=== PATIENT | female | born 1950 | race African-American/Black ===

== ENCOUNTER 2018-07-14 12:54 | Observation (INO) | payer OTHER ==
--- NOTE | 2018-07-14 13:25 | EDM.PDOC ---
ED HPI GENERAL MEDICAL PROBLEM - General Chief Complaint: Chest Pain Stated Complaint: CHEST PAINS Time Seen by Provider: 07/14/18 12:56 - History of Present Illness INITIAL COMMENTS - FREE TEXT/NARRATIVE: HISTORY AND PHYSICAL: History of present illness: Patient is a 68-year-old black female with history of hypercholesterolemia diabetes who presents with concern of left-sided chest pain there is some radiation her left arm she communicates through her son who has been translating there's been no reported associated palpitations nausea vomiting diaphoresis. Patient reports allergies to aspirin Review of systems: As per history of present illness and below otherwise all systems reviewed and negative. Past medical history: As per history of present illness and as reviewed below otherwise noncontributory. Surgical history: As per history of present illness and as reviewed below otherwise noncontributory. Social history: No reported history of drug or alcohol abuse. Family history: As per history of present illness and as reviewed below otherwise noncontributory. Physical exam: HEENT: Atraumatic, normocephalic, pupils reactive, negative for conjunctival pallor or scleral icterus, mucous membranes moist, throat clear, neck supple, nontender, trachea midline. Lungs: Clear to auscultation, breath sounds equal bilaterally, chest nontender. Heart: S1S2, regular, negative for clicks, rubs, or JVD. Abdomen: Soft, nondistended, nontender. Negative for masses or hepatosplenomegaly. Negative for costovertebral tenderness. Pelvis: Stable nontender. Genitourinary: Deferred. Rectal: Deferred. Extremities: Atraumatic, negative for cords or calf pain. Neurovascular unremarkable. Neuro: Awake, alert, oriented. Follows commands moves ostrum is limited grossly nonfocal exam. Diagnostics: CBC CMP PT/INR chest x-ray EKG Therapeutics: IV O2 monitor Impression: #1 chest pain #2 history of [id number] diabetes #3 history of hypercholesteremia Definitive disposition and diagnosis as appropriate pending reevaluation and review of above. Left Chest Pain Score (Numeric/FACES): 7 - Related Data Allergies Allergy/AdvReac Type Severity Reaction Status Date / Time NSAIDS (Non-Steroidal Allergy Nausea and Verified 07/14/18 13:04 Anti-Inflamma Vomiting Home Meds: Home Meds Candesartan Cilexetil [Atacand] 16 mg PO DAILY 07/14/18 [History] Cholecalciferol (Vitamin D3) [Vitamin D3] 1 cap PO ASDIRECTED 07/14/18 [History] Fish Oil/[place]-3 Fatty Acids [Fish Oil] 1 cap PO ASDIRECTED 07/14/18 [History] Multivitamin [Daily Multiple Vitamin] 1 tab PO DAILY 07/14/18 [History] Rosuvastatin [Crestor] 5 mg PO DAILY 07/14/18 [History] Vitamin B Complex 1 cap PO ASDIRECTED 07/14/18 [History] amLODIPine Besylate [Amlodipine Besylate] 10 mg PO DAILY 07/14/18 [History] metFORMIN HCl [Metformin HCl] 850 mg PO ASDIRECTED 07/14/18 [History] Past Medical History Cardiovascular History: Reports: Hypertension [employer] History: Reports: Endocrine/Metabolic History: Reports: Diabetes, Type II - Infectious Disease History Infectious Disease History: Reports: Chicken Pox - Past Surgical History Cardiovascular Surgical History: Reports: None Other Female Surgeries/Procedures: Ovarian cyst removal Endocrine Surgical History: Reports: None Social & Family History - Family History Family Medical History: Noncontributory - Tobacco Use Smoking Status *Q: Never Smoker Second Hand Smoke Exposure: No - Caffeine Use Caffeine Use: Reports: None - Recreational Drug Use Recreational Drug Use: No ED ROS GENERAL - Review of Systems Review Of Systems: ROS reveals no pertinent complaints other than HPI. ED EXAM, GENERAL - Physical Exam Exam: See Below (The dictation) Course - Vital Signs Last Recorded V/S: Last Vital Signs Temp 36.9 C 07/14/18 13:04 Pulse 61 07/14/18 13:04 Resp 17 07/14/18 13:04 BP 153/88 H 07/14/18 13:04 Pulse Ox 98 07/14/18 13:04 - Orders/Labs/Meds Orders: Active Orders 24 hr Category Date Time Status Cardiac Monitoring [RC] . DIRECTED Care 07/14/18 13:14 Active EKG Documentation Completion [RC] STAT Care 07/14/18 13:15 Active B-TYPE NATRIURETIC PEPTIDE,BNP [CHEM] Stat Lab 07/14/18 13:16 Ordered Labs: Laboratory Tests 07/14/18 07/14/18 07/14/18 Range/Units 13:00 13:00 13:00 WBC 5.25 (4.0-11.0) K/uL RBC 4.65 (4.30-5.90) M/uL Hgb 14.7 (12.0-16.0) g/dL Hct 44.2 (36.0-46.0) % MCV 95.1 (80.0-98.0) fL MCH 31.6 (27.0-32.0) pg MCHC 33.3 (31.0-37.0) g/dL RDW Std Deviation 49.2 (28.0-62.0) fl RDW Coeff of Massimo 14 (11.0-15.0) % Plt Count 189 (150-400) K/uL MPV 10.90 (7.40-12.00) fL Neut % (Auto) 33.9 L (48.0-80.0) % Lymph % (Auto) 56.8 H (16.0-40.0) % Divide % (Auto) 7.4 (0.0-15.0) % Eos % (Auto) 1.7 (0.0-7.0) % Baso % (Auto) 0.2 (0.0-1.5) % Neut # (Auto) 1.8 (1.4-5.7) K/uL Lymph # (Auto) 3.0 H (0.6-2.4) K/uL Divide # (Auto) 0.4 (0.0-0.8) K/uL Eos # (Auto) 0.1 (0.0-0.7) K/uL Baso # (Auto) 0.0 (0.0-0.1) K/uL Nucleated RBC % 0.0 /100WBC Nucleated RBCs # 0 K/uL INR 1.03 Sodium 140 (136-145) mmol/L Potassium 4.1 (3.5-5.1) mmol/L Chloride 104 (98-107) mmol/L Carbon Dioxide 25.1 (21.0-32.0) mmol/L BUN 19 H (7.0-18.0) mg/dL Creatinine 0.8 (0.6-1.0) mg/dL Est Cr Clr Drug Dosing 64.54 mL/min Estimated GFR (MDRD) > 60.0 ml/min Glucose 98 (74-106) mg/dL Calcium 9.6 (8.5-10.1) mg/dL Total Bilirubin 0.6 (0.2-1.0) mg/dL AST 32 (15-37) IU/L ALT 46 (14-63) IU/L Alkaline Phosphatase 56 (46-116) U/L Creatine Kinase 160 (26-308) U/L Troponin I < 0.050 (0.000-0.056) ng/mL Total Protein 8.8 H (6.4-8.2) g/dL Albumin 4.0 (3.4-5.0) g/dL Globulin 4.8 H (2.6-4.0) g/dL Albumin/Globulin Ratio 0.8 L (0.9-1.6) Amylase 123 H (25-115) U/L Lipase 196 (73-393) U/L Departure - Departure Time of Disposition: 14:13 Disposition: Refer to Observation Condition: Good Clinical Impression: Chest pain - Discharge Information Referrals: Heri Charles MD [Primary Care Provider] - Forms: ED Department Discharge - My Orders Last 24 Hours: My Active Orders 07/14/18 13:14 Cardiac Monitoring [RC] . DIRECTED 07/14/18 13:15 EKG Documentation Completion [RC] STAT 07/14/18 13:16 B-TYPE NATRIURETIC PEPTIDE,BNP [CHEM] Stat - Assessment/Plan Last 24 Hours: My Active Orders 07/14/18 13:14 Cardiac Monitoring [RC] . DIRECTED 07/14/18 13:15 EKG Documentation Completion [RC] STAT 07/14/18 13:16 B-TYPE NATRIURETIC PEPTIDE,BNP [CHEM] Stat
[2018-07-14 13:43] LABS: CHLORIDE,CL 104 mmol/L (98-107); SODIUM,NA 140 mmol/L (136-145)
--- NOTE | 2018-07-14 13:43 | CR ---
EXAMINATION: Portable chest radiograph. HISTORY: Chest pain. FINDINGS: The trachea is midline. The cardiomediastinal silhouette is within normal limits. No pulmonary infiltrates, effusions or pneumothorax. Osseous structures appear unremarkable. IMPRESSION: No acute cardiopulmonary process.
[2018-07-14] MEDS ORDERED: Fish Oil/Omega-3 Fatty Acids 1 Gm Cap PO SCH (15:15)
[2018-07-14] MEDS ORDERED: Cholecalciferol (Vitamin D3) 1,000 Unit Tab PO SCH (15:15)
[2018-07-14] MEDS ORDERED: Pantoprazole 40 MG in Sodium Chloride 0.9% 100 ML IVPUSH ONE (15:23)
[2018-07-14] MEDS ORDERED: Enoxaparin 40 MG/0.4 ML Syringe SUBCUT SCH (15:30)
--- NOTE | 2018-07-14 15:38 | PCM.HP ---
<Yuri Melo - Last Filed: 07/14/18 15:31> H&P History of Present Illness - General Date of Service: 07/14/18 Admit Problem/Dx: Admission Diagnosis/Problem Admission Diagnosis/Problem Chest pain Source of Information: Patient, Family History Limitations: Reports: No Limitations - History of Present Illness Initial Comments - Free Text/Narative: 68F AA hx of T2DM, HTN presented to the ER with her son w/ chief complaint of chest discomfort; left sided radiating down left arm for the past 2 days. She thinks its heartburn. No hx of cardiac event history. Left Chest Pain Score (Numeric/FACES): 7 - Related Data Allergies/Adverse Reactions: Allergies Allergy/AdvReac Type Severity Reaction Status Date / Time NSAIDS (Non-Steroidal Allergy Nausea and Verified 07/14/18 13:04 Anti-Inflamma Vomiting Home Medications: Home Meds Candesartan Cilexetil [Atacand] 16 mg PO DAILY 07/14/18 [History] Cholecalciferol (Vitamin D3) [Vitamin D3] 1 cap PO ASDIRECTED 07/14/18 [History] Fish Oil/Adel-3 Fatty Acids [Fish Oil] 1 cap PO ASDIRECTED 07/14/18 [History] Melatonin [Melatin] 3 mg PO BEDTIME 07/14/18 [History] Multivitamin [Daily Multiple Vitamin] 1 tab PO DAILY 07/14/18 [History] Rosuvastatin [Crestor] 5 mg PO DAILY 07/14/18 [History] Vitamin B Complex 1 cap PO ASDIRECTED 07/14/18 [History] amLODIPine Besylate [Amlodipine Besylate] 10 mg PO DAILY 07/14/18 [History] metFORMIN HCl [Metformin HCl] 850 mg PO ASDIRECTED 07/14/18 [History] Past Medical History Cardiovascular History: Reports: High Cholesterol, Hypertension [employer]ER History: Reports: Endocrine/Metabolic History: Reports: Diabetes, Type II - Infectious Disease History Infectious Disease History: Reports: Chicken Pox - Past Surgical History Cardiovascular Surgical History: Reports: None Other Female Surgeries/Procedures: Ovarian cyst removal Endocrine Surgical History: Reports: None Social & Family History - Family History Family Medical History: Noncontributory - Tobacco Use Smoking Status *Q: Never Smoker Second Hand Smoke Exposure: No - Caffeine Use Caffeine Use: Reports: None - Recreational Drug Use Recreational Drug Use: No H&P Review of Systems - Review of Systems: Review Of Systems: See Below Exam - Exam Exam: See Below - Vital Signs Vital Signs: Last Vital Signs Temp 36.9 C 07/14/18 13:04 Pulse 52 L 07/14/18 14:50 Resp 18 07/14/18 14:50 BP 149/82 H 07/14/18 14:50 Pulse Ox 98 07/14/18 14:50 Weight: 79.832 kg - Exam General: Alert, Oriented, 4 HEENT: PERRLA, Hearing Intact, Mucosa Moist & [place], Nares Patent, Normal Nasal Septum, Posterior Pharynx Clear, Conjunctiva Clear, EOMI, EACs Clear, TMs Clear Neck: Supple, Trachea Midline, 2 Lungs: Clear to Auscultation, Normal Respiratory Effort Cardiovascular: Regular Rate, Regular Rhythm GI/Abdominal Exam: Normal Bowel Sounds, Soft, Non-Tender, No Organomegaly, No Distention, No Abnormal Bruit, No Mass, Pelvis Stable Peripheral Pulses: 2+: Dorsalis Pedis (L), Dorsalis Pedis (R) Skin: Warm Neurological: Cranial Nerves Intact, Reflexes Equal Bilateral Neuro Extensive - Motor, Sensory, Reflexes: CN II-XII Intact, Normal Gait, Normal Reflexes DTR: 2+: Achilles (L), Achilles (R) Psychiatric: Alert, Normal Affect, Normal Mood - Patient Data Lab Results Last 24 hrs: Laboratory Results - last 24 hr 07/14/18 07/14/18 07/14/18 Range/Units 13:00 13:00 13:00 WBC 5.25 (4.0-11.0) K/uL RBC 4.65 (4.30-5.90) M/uL Hgb 14.7 (12.0-16.0) g/dL Hct 44.2 (36.0-46.0) % MCV 95.1 (80.0-98.0) fL MCH 31.6 (27.0-32.0) pg MCHC 33.3 (31.0-37.0) g/dL RDW Std Deviation 49.2 (28.0-62.0) fl RDW Coeff of Massimo 14 (11.0-15.0) % Plt Count 189 (150-400) K/uL MPV 10.90 (7.40-12.00) fL Neut % (Auto) 33.9 L (48.0-80.0) % Lymph % (Auto) 56.8 H (16.0-40.0) % Sampson % (Auto) 7.4 (0.0-15.0) % Eos % (Auto) 1.7 (0.0-7.0) % Baso % (Auto) 0.2 (0.0-1.5) % Neut # (Auto) 1.8 (1.4-5.7) K/uL Lymph # (Auto) 3.0 H (0.6-2.4) K/uL Sampson # (Auto) 0.4 (0.0-0.8) K/uL Eos # (Auto) 0.1 (0.0-0.7) K/uL Baso # (Auto) 0.0 (0.0-0.1) K/uL Nucleated RBC % 0.0 /100WBC Nucleated RBCs # 0 K/uL INR 1.03 Sodium 140 (136-145) mmol/L Potassium 4.1 (3.5-5.1) mmol/L Chloride 104 (98-107) mmol/L Carbon Dioxide 25.1 (21.0-32.0) mmol/L BUN 19 H (7.0-18.0) mg/dL Creatinine 0.8 (0.6-1.0) mg/dL Est Cr Clr Drug Dosing 64.54 mL/min Estimated GFR (MDRD) > 60.0 ml/min Glucose 98 (74-106) mg/dL Calcium 9.6 (8.5-10.1) mg/dL Total Bilirubin 0.6 (0.2-1.0) mg/dL AST 32 (15-37) IU/L ALT 46 (14-63) IU/L Alkaline Phosphatase 56 (46-116) U/L Creatine Kinase 160 (26-308) U/L Troponin I < 0.050 (0.000-0.056) ng/mL B-Natriuretic Peptide (<100) PG/ML Total Protein 8.8 H (6.4-8.2) g/dL Albumin 4.0 (3.4-5.0) g/dL Globulin 4.8 H (2.6-4.0) g/dL Albumin/Globulin Ratio 0.8 L (0.9-1.6) Amylase 123 H (25-115) U/L Lipase 196 (73-393) U/L 07/14/18 Range/Units 13:00 WBC (4.0-11.0) K/uL RBC (4.30-5.90) M/uL Hgb (12.0-16.0) g/dL Hct (36.0-46.0) % MCV (80.0-98.0) fL MCH (27.0-32.0) pg MCHC (31.0-37.0) g/dL RDW Std Deviation (28.0-62.0) fl RDW Coeff of Massimo (11.0-15.0) % Plt Count (150-400) K/uL MPV (7.40-12.00) fL Neut % (Auto) (48.0-80.0) % Lymph % (Auto) (16.0-40.0) % Sampson % (Auto) (0.0-15.0) % Eos % (Auto) (0.0-7.0) % Baso % (Auto) (0.0-1.5) % Neut # (Auto) (1.4-5.7) K/uL Lymph # (Auto) (0.6-2.4) K/uL Sampson # (Auto) (0.0-0.8) K/uL Eos # (Auto) (0.0-0.7) K/uL Baso # (Auto) (0.0-0.1) K/uL Nucleated RBC % /100WBC Nucleated RBCs # K/uL INR Sodium (136-145) mmol/L Potassium (3.5-5.1) mmol/L Chloride (98-107) mmol/L Carbon Dioxide (21.0-32.0) mmol/L BUN (7.0-18.0) mg/dL Creatinine (0.6-1.0) mg/dL Est Cr Clr Drug Dosing mL/min Estimated GFR (MDRD) ml/min Glucose (74-106) mg/dL Calcium (8.5-10.1) mg/dL Total Bilirubin (0.2-1.0) mg/dL AST (15-37) IU/L ALT (14-63) IU/L Alkaline Phosphatase (46-116) U/L Creatine Kinase (26-308) U/L Troponin I (0.000-0.056) ng/mL B-Natriuretic Peptide 27 (<100) PG/ML Total Protein (6.4-8.2) g/dL Albumin (3.4-5.0) g/dL Globulin (2.6-4.0) g/dL Albumin/Globulin Ratio (0.9-1.6) Amylase (25-115) U/L Lipase (73-393) U/L Result Diagrams: 07/14/18 13:00 07/14/18 13:00 Problem List Initiated/Reviewed/Updated: Yes Orders Last 24hrs: Active Orders 24 hr Category Date Time Status Patient Status [ADT] Stat ADT 07/14/18 14:14 Active Antiembolic Devices [RC] PER UNIT ROUTINE Care 07/14/18 15:23 Ordered Cardiac Monitoring [RC] . DIRECTED Care 07/14/18 13:14 Active Cardiac Monitoring [RC] CONTINUOUS Care 07/14/18 15:22 Ordered EKG Documentation Completion [RC] STAT Care 07/14/18 13:15 Active Oxygen Therapy [RC] PRN Care 07/14/18 15:22 Ordered Up ad Danna [RC] ASDIRECTED Care 07/14/18 15:22 Ordered VTE/DVT Education [RC] PER UNIT ROUTINE Care 07/14/18 15:22 Ordered Vital Signs [RC] Q4H Care 07/14/18 15:22 Ordered Heart Healthy Diet [DIET] Diet 07/14/18 Dinner Ordered TROPONIN I [CHEM] Q6H Lab 07/14/18 19:00 Ordered TROPONIN I [CHEM] Q6H Lab 07/15/18 01:00 Ordered Candesartan Cilexetil [Atacand] Med 07/15/18 09:00 Ordered 16 mg PO DAILY Cholecalciferol (Vitamin D3) [Vitamin D3] Med 07/14/18 15:15 Ordered 1 cap PO ASDIRECTED Enoxaparin [Lovenox] Med 07/14/18 15:30 Ordered 40 mg SUBCUT Q24H Fish Oil/Adel-3 Fatty Acids [Fish Oil] Med 07/14/18 15:15 Active 1 gm PO ASDIRECTED Pantoprazole [ProTONIX IV] 40 mg Med 07/14/18 15:23 Ordered Sodium Chloride 0.9% [Normal Saline] 100 ml IVPUSH NOW Rosuvastatin [Crestor] Med 07/15/18 09:00 Active 5 mg PO DAILY amLODIPine [Norvasc] Med 07/14/18 15:15 Active 10 mg PO DAILY metFORMIN [Glucophage] Med 07/14/18 15:15 Active 850 mg PO ASDIRECTED Sequential Compression Device [OM.PC] Per Unit Routine Oth 07/14/18 15:22 Ordered Medication Orders Amlodipine Besylate (Norvasc) 10 mg PO DAILY IVY Enoxaparin Sodium (Lovenox) 40 mg SUBCUT Q24H IVY Fish Oil (Fish Oil) 1 gm PO ASDIRECTED IVY Pantoprazole Sodium 40 mg/ (Sodium Chloride) 100 mls @ 10 mls/hr IVPUSH NOW ONE Stop: 07/15/18 01:22 Metformin HCl (Glucophage) 850 mg PO ASDIRECTED IVY Non-Formulary Medication (Candesartan Cilexetil [Atacand]) 16 mg PO DAILY IVY Non-Formulary Medication (Cholecalciferol (Vitamin D3) [Vitamin D3]) 1 cap PO ASDIRECTED IVY Rosuvastatin Calcium (Crestor) 5 mg PO DAILY IVY Assessment/Plan Comment:: Assessment: #1. ACS rule out #2. History of HTN, T2DM #3. GERD Plan: #1. Refer for observation. vitals per floor. cardiac tele/cardiac diet #2. troponin q6h x2 #3. protonix 40mg IV x1 #4. Restart home meds #5. Anticipate dc 1-2 days w/ scheduling outpatient stress test. <Jesus Molina - Last Filed: 07/14/18 18:39> H&P History of Present Illness - General Admit Problem/Dx: Admission Diagnosis/Problem Admission Diagnosis/Problem Chest pain I have seen and examined to patient independently of resident medical officer, Yuri Melo MD. I have discussed the case for care of this patient with him. I have reviewed and approve of the plan of care as outlined by resident medical officer.. Please see orders. [place] speaker. Exam - Vital Signs Vital Signs: Last Vital Signs Temp 36.4 C 07/14/18 15:05 Pulse 55 L 07/14/18 15:05 Resp 16 07/14/18 15:05 BP 157/77 H 07/14/18 16:01 Pulse Ox 98 07/14/18 15:22 - Patient Data Lab Results Last 24 hrs: Laboratory Results - last 24 hr 07/14/18 07/14/18 07/14/18 Range/Units 13:00 13:00 13:00 WBC 5.25 (4.0-11.0) K/uL RBC 4.65 (4.30-5.90) M/uL Hgb 14.7 (12.0-16.0) g/dL Hct 44.2 (36.0-46.0) % MCV 95.1 (80.0-98.0) fL MCH 31.6 (27.0-32.0) pg MCHC 33.3 (31.0-37.0) g/dL RDW Std Deviation 49.2 (28.0-62.0) fl RDW Coeff of Massimo 14 (11.0-15.0) % Plt Count 189 (150-400) K/uL MPV 10.90 (7.40-12.00) fL Neut % (Auto) 33.9 L (48.0-80.0) % Lymph % (Auto) 56.8 H (16.0-40.0) % Sampson % (Auto) 7.4 (0.0-15.0) % Eos % (Auto) 1.7 (0.0-7.0) % Baso % (Auto) 0.2 (0.0-1.5) % Neut # (Auto) 1.8 (1.4-5.7) K/uL Lymph # (Auto) 3.0 H (0.6-2.4) K/uL Sampson # (Auto) 0.4 (0.0-0.8) K/uL Eos # (Auto) 0.1 (0.0-0.7) K/uL Baso # (Auto) 0.0 (0.0-0.1) K/uL Nucleated RBC % 0.0 /100WBC Nucleated RBCs # 0 K/uL INR 1.03 Sodium 140 (136-145) mmol/L Potassium 4.1 (3.5-5.1) mmol/L Chloride 104 (98-107) mmol/L Carbon Dioxide 25.1 (21.0-32.0) mmol/L BUN 19 H (7.0-18.0) mg/dL Creatinine 0.8 (0.6-1.0) mg/dL Est Cr Clr Drug Dosing 64.54 mL/min Estimated GFR (MDRD) > 60.0 ml/min Glucose 98 (74-106) mg/dL Calcium 9.6 (8.5-10.1) mg/dL Total Bilirubin 0.6 (0.2-1.0) mg/dL AST 32 (15-37) IU/L ALT 46 (14-63) IU/L Alkaline Phosphatase 56 (46-116) U/L Creatine Kinase 160 (26-308) U/L Troponin I < 0.050 (0.000-0.056) ng/mL B-Natriuretic Peptide (<100) PG/ML Total Protein 8.8 H (6.4-8.2) g/dL Albumin 4.0 (3.4-5.0) g/dL Globulin 4.8 H (2.6-4.0) g/dL Albumin/Globulin Ratio 0.8 L (0.9-1.6) Amylase 123 H (25-115) U/L Lipase 196 (73-393) U/L 07/14/18 Range/Units 13:00 WBC (4.0-11.0) K/uL RBC (4.30-5.90) M/uL Hgb (12.0-16.0) g/dL Hct (36.0-46.0) % MCV (80.0-98.0) fL MCH (27.0-32.0) pg MCHC (31.0-37.0) g/dL RDW Std Deviation (28.0-62.0) fl RDW Coeff of Massimo (11.0-15.0) % Plt Count (150-400) K/uL MPV (7.40-12.00) fL Neut % (Auto) (48.0-80.0) % Lymph % (Auto) (16.0-40.0) % Sampson % (Auto) (0.0-15.0) % Eos % (Auto) (0.0-7.0) % Baso % (Auto) (0.0-1.5) % Neut # (Auto) (1.4-5.7) K/uL Lymph # (Auto) (0.6-2.4) K/uL Sampson # (Auto) (0.0-0.8) K/uL Eos # (Auto) (0.0-0.7) K/uL Baso # (Auto) (0.0-0.1) K/uL Nucleated RBC % /100WBC Nucleated RBCs # K/uL INR Sodium (136-145) mmol/L Potassium (3.5-5.1) mmol/L Chloride (98-107) mmol/L Carbon Dioxide (21.0-32.0) mmol/L BUN (7.0-18.0) mg/dL Creatinine (0.6-1.0) mg/dL Est Cr Clr Drug Dosing mL/min Estimated GFR (MDRD) ml/min Glucose (74-106) mg/dL Calcium (8.5-10.1) mg/dL Total Bilirubin (0.2-1.0) mg/dL AST (15-37) IU/L ALT (14-63) IU/L Alkaline Phosphatase (46-116) U/L Creatine Kinase (26-308) U/L Troponin I (0.000-0.056) ng/mL B-Natriuretic Peptide 27 (<100) PG/ML Total Protein (6.4-8.2) g/dL Albumin (3.4-5.0) g/dL Globulin (2.6-4.0) g/dL Albumin/Globulin Ratio (0.9-1.6) Amylase (25-115) U/L Lipase (73-393) U/L Result Diagrams: 07/14/18 13:00 07/14/18 13:00 Orders Last 24hrs: Active Orders 24 hr Category Date Time Status Patient Status [ADT] Stat ADT 07/14/18 14:14 Active Antiembolic Devices [RC] PER UNIT ROUTINE Care 07/14/18 15:23 Active Cardiac Monitoring [RC] . DIRECTED Care 07/14/18 13:14 Active Cardiac Monitoring [RC] CONTINUOUS Care 07/14/18 15:22 Active EKG Documentation Completion [RC] STAT Care 07/14/18 13:15 Active Oxygen Therapy [RC] PRN Care 07/14/18 15:22 Active Up ad Danna [RC] ASDIRECTED Care 07/14/18 15:22 Active VTE/DVT Education [RC] PER UNIT ROUTINE Care 07/14/18 15:22 Active Vital Signs [RC] Q4H Care 07/14/18 15:22 Active Heart Healthy Diet [DIET] Diet 07/14/18 Dinner Active BASIC METABOLIC PANEL,BMP [CHEM] AM Lab 07/15/18 05:11 Ordered TROPONIN I [CHEM] Q6H Lab 07/14/18 19:00 Ordered TROPONIN I [CHEM] Q6H Lab 07/15/18 01:00 Ordered Cholecalciferol (Vitamin D3) [Vitamin D3] Med 07/14/18 15:15 Active 1 units PO ASDIRECTED Enoxaparin [Lovenox] Med 07/14/18 15:30 Active 40 mg SUBCUT Q24H Fish Oil/Adel-3 Fatty Acids [Fish Oil] Med 07/14/18 15:15 Active 1 gm PO ASDIRECTED Melatonin Med 07/14/18 21:00 Active 3 mg PO BEDTIME Patient's Own Medication [Ptom] Med 07/15/18 09:00 Active 1 each PO DAILY Polyethylene Glycol 3350 [MiraLAX] Med 07/14/18 15:40 Active 17 gm PO BID PRN Rosuvastatin [Crestor] Med 07/15/18 09:00 Active 5 mg PO DAILY amLODIPine [Norvasc] Med 07/14/18 15:15 Active 10 mg PO DAILY metFORMIN [Glucophage] Med 07/14/18 15:15 Active 850 mg PO ASDIRECTED Sequential Compression Device [OM.PC] Per Unit Routine Oth 07/14/18 15:22 Ordered Medication Orders Amlodipine Besylate (Norvasc) 10 mg PO DAILY [facility] Last Admin: 07/14/18 16:01 Dose: 10 mg Cholecalciferol (Vitamin D3) 1 units PO ASDIRECTED IVY Enoxaparin Sodium (Lovenox) 40 mg SUBCUT Q24H [facility] Last Admin: 07/14/18 16:04 Dose: 40 mg Fish Oil (Fish Oil) 1 gm PO ASDIRECTED [facility] Melatonin (Melatonin) 3 mg PO BEDTIME [facility] Metformin HCl (Glucophage) 850 mg PO ASDIRECTED [facility] Candesartan Cilexetil [Atacand] 16 Mg 1 each PO DAILY [facility] Polyethylene Glycol (Miralax) 17 gm PO BID PRN PRN Reason: Constipation Rosuvastatin Calcium (Crestor) 5 mg PO DAILY [facility]
[2018-07-14] MEDS ORDERED: Polyethylene Glycol 3350 Powder 17 GM Packet PO PRN (15:40)
[2018-07-14] MEDS ORDERED: Pantoprazole 40 MG Vial IV ONE (15:45)
[2018-07-14] MEDS: amLODIPine 5 MG Tab PO SCH (16:01)
[2018-07-14] MEDS ORDERED: Melatonin 3 MG Tab PO SCH (21:00)
[2018-07-15 06:59] LABS: CHLORIDE,CL 106 mmol/L (98-107); SODIUM,NA 139 mmol/L (136-145)
[2018-07-15] MEDS ORDERED: CANDESARTAN CILEXETIL 16 MG PO SCH (09:00)
[2018-07-15] MEDS ORDERED: Rosuvastatin 10 MG Tab PO SCH (09:00)
[2018-07-15] MEDS: amLODIPine 5 MG Tab PO SCH (09:11)
--- NOTE | 2018-07-15 09:17 | PCM.DCSUM1 ---
<Yuri Melo - Last Filed: 07/15/18 09:14> Discharge Summary - Hospital Course Free Text/Narrative:: Admission date: 07/14/2018 Discharge date: 07/15/2018 Admission diagnosis: #1. ACS rule out #2. History of HTN, T2DM #3. GERD Discharge diagnosis: #1. GERD #2. Generalized anxiety disorder #3. History of HTN, T2DM Hospital course: 68F admitted for observation after complaining of left sided chest pain with the above history. Patient did well overnight with no reportable cardiac events; troponins negative x3. She did complain of heartburn so I will trial her on protonix w/ f/u with PCP. She also complains of generalized anxiety over being away from her family over the last 10 years, which she thinks may also be a cause of her chest discomfort yesterday. Will start her on lexapro which she can continue to f/u on. Will also set up stress test. - Discharge Data Discharge Date: 07/15/18 Discharge Disposition: Home, Self-Care 01 Condition: Stable - Patient Instructions Diet: Usual Diet as Tolerated Activity: As Tolerated Driving: May Drive Today Showering/Bathing: May Shower Wound/Incision Care: Keep Operative Site/Wound Site Clean and Dry Notify Provider of: Fever, Nausea and/or Vomiting Other/Special Instructions: chest pain - Discharge Plan Prescriptions/Med Rec: Escitalopram [Lexapro] 10 mg PO DAILY 30 Days #30 tab Pantoprazole Sodium [Protonix] 40 mg PO DAILY 30 Days #30 tablet. Home Medications: Home Meds Candesartan Cilexetil [Atacand] 16 mg PO DAILY 07/14/18 [History] Cholecalciferol (Vitamin D3) [Vitamin D3] 1 cap PO ASDIRECTED 07/14/18 [History] Fish Oil/[place]-3 Fatty Acids [Fish Oil] 1 cap PO ASDIRECTED 07/14/18 [History] Melatonin [Melatin] 3 mg PO BEDTIME 07/14/18 [History] Multivitamin [Daily Multiple Vitamin] 1 tab PO DAILY 07/14/18 [History] Rosuvastatin [Crestor] 5 mg PO DAILY 07/14/18 [History] Vitamin B Complex 1 cap PO ASDIRECTED 07/14/18 [History] amLODIPine Besylate [Amlodipine Besylate] 10 mg PO DAILY 07/14/18 [History] metFORMIN HCl [Metformin HCl] 850 mg PO ASDIRECTED 07/14/18 [History] Escitalopram [Lexapro] 10 mg PO DAILY 30 Days #30 tab 07/15/18 [Rx] Pantoprazole Sodium [Protonix] 40 mg PO DAILY 30 Days #30 tablet. 07/15/18 [Rx ] Patient Handouts: Nonspecific Chest Pain, [id number], Pantoprazole tablets, Escitalopram tablets Referrals: [facility] [Outside] Heri Charles MD [Primary Care Provider] - 07/26/18 4:00 pm - Discharge Summary/Plan Comment DC Time >30 min.: No - Patient Data Vitals - Most Recent: Last Vital Signs Temp 37.1 C 07/15/18 07:46 Pulse 59 L 07/15/18 07:46 Resp 15 07/15/18 07:46 BP 115/61 07/15/18 09:11 Pulse Ox 96 07/15/18 07:46 Weight - Most Recent: 79.832 kg I&O - Last 24 hours: Intake & Output 07/14/18 07/15/18 07/15/18 22:59 06:59 14:59 Intake Total 50 600 Output Total 0 Balance 50 600 Lab Results - Last 24 hrs: Laboratory Results - last 24 hr 07/14/18 07/14/18 07/14/18 Range/Units 13:00 13:00 13:00 WBC 5.25 (4.0-11.0) K/uL RBC 4.65 (4.30-5.90) M/uL Hgb 14.7 (12.0-16.0) g/dL Hct 44.2 (36.0-46.0) % MCV 95.1 (80.0-98.0) fL MCH 31.6 (27.0-32.0) pg MCHC 33.3 (31.0-37.0) g/dL RDW Std Deviation 49.2 (28.0-62.0) fl RDW Coeff of Massimo 14 (11.0-15.0) % Plt Count 189 (150-400) K/uL MPV 10.90 (7.40-12.00) fL Neut % (Auto) 33.9 L (48.0-80.0) % Lymph % (Auto) 56.8 H (16.0-40.0) % [place] % (Auto) 7.4 (0.0-15.0) % Eos % (Auto) 1.7 (0.0-7.0) % Baso % (Auto) 0.2 (0.0-1.5) % Neut # (Auto) 1.8 (1.4-5.7) K/uL Lymph # (Auto) 3.0 H (0.6-2.4) K/uL [place] # (Auto) 0.4 (0.0-0.8) K/uL Eos # (Auto) 0.1 (0.0-0.7) K/uL Baso # (Auto) 0.0 (0.0-0.1) K/uL Nucleated RBC % 0.0 /100WBC Nucleated RBCs # 0 K/uL INR 1.03 Sodium 140 (136-145) mmol/L Potassium 4.1 (3.5-5.1) mmol/L Chloride 104 (98-107) mmol/L Carbon Dioxide 25.1 (21.0-32.0) mmol/L BUN 19 H (7.0-18.0) mg/dL Creatinine 0.8 (0.6-1.0) mg/dL Est Cr Clr Drug Dosing 64.54 mL/min Estimated GFR (MDRD) > 60.0 ml/min Glucose 98 (74-106) mg/dL Calcium 9.6 (8.5-10.1) mg/dL Total Bilirubin 0.6 (0.2-1.0) mg/dL AST 32 (15-37) IU/L ALT 46 (14-63) IU/L Alkaline Phosphatase 56 (46-116) U/L Creatine Kinase 160 (26-308) U/L Troponin I < 0.050 (0.000-0.056) ng/mL B-Natriuretic Peptide (<100) PG/ML Total Protein 8.8 H (6.4-8.2) g/dL Albumin 4.0 (3.4-5.0) g/dL Globulin 4.8 H (2.6-4.0) g/dL Albumin/Globulin Ratio 0.8 L (0.9-1.6) Amylase 123 H (25-115) U/L Lipase 196 (73-393) U/L 07/14/18 07/14/18 07/15/18 Range/Units 13:00 18:50 01:06 WBC (4.0-11.0) K/uL RBC (4.30-5.90) M/uL Hgb (12.0-16.0) g/dL Hct (36.0-46.0) % MCV (80.0-98.0) fL MCH (27.0-32.0) pg MCHC (31.0-37.0) g/dL RDW Std Deviation (28.0-62.0) fl RDW Coeff of Massimo (11.0-15.0) % Plt Count (150-400) K/uL MPV (7.40-12.00) fL Neut % (Auto) (48.0-80.0) % Lymph % (Auto) (16.0-40.0) % [place] % (Auto) (0.0-15.0) % Eos % (Auto) (0.0-7.0) % Baso % (Auto) (0.0-1.5) % Neut # (Auto) (1.4-5.7) K/uL Lymph # (Auto) (0.6-2.4) K/uL [place] # (Auto) (0.0-0.8) K/uL Eos # (Auto) (0.0-0.7) K/uL Baso # (Auto) (0.0-0.1) K/uL Nucleated RBC % /100WBC Nucleated RBCs # K/uL INR Sodium (136-145) mmol/L Potassium (3.5-5.1) mmol/L Chloride (98-107) mmol/L Carbon Dioxide (21.0-32.0) mmol/L BUN (7.0-18.0) mg/dL Creatinine (0.6-1.0) mg/dL Est Cr Clr Drug Dosing mL/min Estimated GFR (MDRD) ml/min Glucose (74-106) mg/dL Calcium (8.5-10.1) mg/dL Total Bilirubin (0.2-1.0) mg/dL AST (15-37) IU/L ALT (14-63) IU/L Alkaline Phosphatase (46-116) U/L Creatine Kinase (26-308) U/L Troponin I < 0.050 < 0.050 (0.000-0.056) ng/mL B-Natriuretic Peptide 27 (<100) PG/ML Total Protein (6.4-8.2) g/dL Albumin (3.4-5.0) g/dL Globulin (2.6-4.0) g/dL Albumin/Globulin Ratio (0.9-1.6) Amylase (25-115) U/L Lipase (73-393) U/L 07/15/18 Range/Units 06:25 WBC (4.0-11.0) K/uL RBC (4.30-5.90) M/uL Hgb (12.0-16.0) g/dL Hct (36.0-46.0) % MCV (80.0-98.0) fL MCH (27.0-32.0) pg MCHC (31.0-37.0) g/dL RDW Std Deviation (28.0-62.0) fl RDW Coeff of Massimo (11.0-15.0) % Plt Count (150-400) K/uL MPV (7.40-12.00) fL Neut % (Auto) (48.0-80.0) % Lymph % (Auto) (16.0-40.0) % [place] % (Auto) (0.0-15.0) % Eos % (Auto) (0.0-7.0) % Baso % (Auto) (0.0-1.5) % Neut # (Auto) (1.4-5.7) K/uL Lymph # (Auto) (0.6-2.4) K/uL [place] # (Auto) (0.0-0.8) K/uL Eos # (Auto) (0.0-0.7) K/uL Baso # (Auto) (0.0-0.1) K/uL Nucleated RBC % /100WBC Nucleated RBCs # K/uL INR Sodium 139 (136-145) mmol/L Potassium 4.8 (3.5-5.1) mmol/L Chloride 106 (98-107) mmol/L Carbon Dioxide 27.3 (21.0-32.0) mmol/L BUN 15 (7.0-18.0) mg/dL Creatinine 0.9 (0.6-1.0) mg/dL Est Cr Clr Drug Dosing 53.09 mL/min Estimated GFR (MDRD) > 60.0 ml/min Glucose 110 H (74-106) mg/dL Calcium 9.5 (8.5-10.1) mg/dL Total Bilirubin (0.2-1.0) mg/dL AST (15-37) IU/L ALT (14-63) IU/L Alkaline Phosphatase (46-116) U/L Creatine Kinase (26-308) U/L Troponin I (0.000-0.056) ng/mL B-Natriuretic Peptide (<100) PG/ML Total Protein (6.4-8.2) g/dL Albumin (3.4-5.0) g/dL Globulin (2.6-4.0) g/dL Albumin/Globulin Ratio (0.9-1.6) Amylase (25-115) U/L Lipase (73-393) U/L Med Orders - Current: Current Medications Amlodipine Besylate (Norvasc) 10 mg PO DAILY [facility] Last Admin: 07/15/18 09:11 Dose: 10 mg Cholecalciferol (Vitamin D3) 1 units PO ASDIRECTED [facility] Enoxaparin Sodium (Lovenox) 40 mg SUBCUT Q24H [facility] Last Admin: 07/14/18 16:04 Dose: 40 mg Fish Oil (Fish Oil) 1 gm PO ASDIRECTED [facility] Melatonin (Melatonin) 3 mg PO BEDTIME [facility] Last Admin: 07/14/18 21:29 Dose: 3 mg Metformin HCl (Glucophage) 850 mg PO ASDIRECTED [facility] Candesartan Cilexetil [Atacand] 16 Mg 1 each PO DAILY [facility] Last Admin: 07/15/18 09:12 Dose: Not Given Polyethylene Glycol (Miralax) 17 gm PO BID PRN PRN Reason: Constipation Rosuvastatin Calcium (Crestor) 5 mg PO DAILY [facility] Last Admin: 07/15/18 09:11 Dose: 5 mg Discontinued Medications Pantoprazole Sodium (Protonix Iv) 40 mg IV NOW ONE Stop: 07/14/18 15:46 Last Admin: 07/14/18 16:04 Dose: 40 mg <Tracy,Sung - Last Filed: 07/15/18 11:47> Discharge Summary - Hospital Course Free Text/Narrative:: I have seen and examined to patient independently of medical facilities section director, Yuri Melo MD. I have discussed the case for care of this patient with him. I have reviewed and approve of the plan of care as outlined by medical facilities section director.. Please see orders. - Patient Data Vitals - Most Recent: Last Vital Signs Temp 37.1 C 07/15/18 07:46 Pulse 59 L 07/15/18 07:46 Resp 15 07/15/18 07:46 BP 115/61 07/15/18 09:11 Pulse Ox 96 07/15/18 07:46 I&O - Last 24 hours: Intake & Output 07/14/18 07/15/18 07/15/18 22:59 06:59 14:59 Intake Total 50 600 236 Output Total 0 Balance 50 600 236 Lab Results - Last 24 hrs: Laboratory Results - last 24 hr 07/14/18 07/14/18 07/14/18 Range/Units 13:00 13:00 13:00 WBC 5.25 (4.0-11.0) K/uL RBC 4.65 (4.30-5.90) M/uL Hgb 14.7 (12.0-16.0) g/dL Hct 44.2 (36.0-46.0) % MCV 95.1 (80.0-98.0) fL MCH 31.6 (27.0-32.0) pg MCHC 33.3 (31.0-37.0) g/dL RDW Std Deviation 49.2 (28.0-62.0) fl RDW Coeff of Massimo 14 (11.0-15.0) % Plt Count 189 (150-400) K/uL MPV 10.90 (7.40-12.00) fL Neut % (Auto) 33.9 L (48.0-80.0) % Lymph % (Auto) 56.8 H (16.0-40.0) % [place] % (Auto) 7.4 (0.0-15.0) % Eos % (Auto) 1.7 (0.0-7.0) % Baso % (Auto) 0.2 (0.0-1.5) % Neut # (Auto) 1.8 (1.4-5.7) K/uL Lymph # (Auto) 3.0 H (0.6-2.4) K/uL [place] # (Auto) 0.4 (0.0-0.8) K/uL Eos # (Auto) 0.1 (0.0-0.7) K/uL Baso # (Auto) 0.0 (0.0-0.1) K/uL Nucleated RBC % 0.0 /100WBC Nucleated RBCs # 0 K/uL INR 1.03 Sodium 140 (136-145) mmol/L Potassium 4.1 (3.5-5.1) mmol/L Chloride 104 (98-107) mmol/L Carbon Dioxide 25.1 (21.0-32.0) mmol/L BUN 19 H (7.0-18.0) mg/dL Creatinine 0.8 (0.6-1.0) mg/dL Est Cr Clr Drug Dosing 64.54 mL/min Estimated GFR (MDRD) > 60.0 ml/min Glucose 98 (74-106) mg/dL Calcium 9.6 (8.5-10.1) mg/dL Total Bilirubin 0.6 (0.2-1.0) mg/dL AST 32 (15-37) IU/L ALT 46 (14-63) IU/L Alkaline Phosphatase 56 (46-116) U/L Creatine Kinase 160 (26-308) U/L Troponin I < 0.050 (0.000-0.056) ng/mL B-Natriuretic Peptide (<100) PG/ML Total Protein 8.8 H (6.4-8.2) g/dL Albumin 4.0 (3.4-5.0) g/dL Globulin 4.8 H (2.6-4.0) g/dL Albumin/Globulin Ratio 0.8 L (0.9-1.6) Amylase 123 H (25-115) U/L Lipase 196 (73-393) U/L 07/14/18 07/14/18 07/15/18 Range/Units 13:00 18:50 01:06 WBC (4.0-11.0) K/uL RBC (4.30-5.90) M/uL Hgb (12.0-16.0) g/dL Hct (36.0-46.0) % MCV (80.0-98.0) fL MCH (27.0-32.0) pg MCHC (31.0-37.0) g/dL RDW Std Deviation (28.0-62.0) fl RDW Coeff of Massimo (11.0-15.0) % Plt Count (150-400) K/uL MPV (7.40-12.00) fL Neut % (Auto) (48.0-80.0) % Lymph % (Auto) (16.0-40.0) % [place] % (Auto) (0.0-15.0) % Eos % (Auto) (0.0-7.0) % Baso % (Auto) (0.0-1.5) % Neut # (Auto) (1.4-5.7) K/uL Lymph # (Auto) (0.6-2.4) K/uL [place] # (Auto) (0.0-0.8) K/uL Eos # (Auto) (0.0-0.7) K/uL Baso # (Auto) (0.0-0.1) K/uL Nucleated RBC % /100WBC Nucleated RBCs # K/uL INR Sodium (136-145) mmol/L Potassium (3.5-5.1) mmol/L Chloride (98-107) mmol/L Carbon Dioxide (21.0-32.0) mmol/L BUN (7.0-18.0) mg/dL Creatinine (0.6-1.0) mg/dL Est Cr Clr Drug Dosing mL/min Estimated GFR (MDRD) ml/min Glucose (74-106) mg/dL Calcium (8.5-10.1) mg/dL Total Bilirubin (0.2-1.0) mg/dL AST (15-37) IU/L ALT (14-63) IU/L Alkaline Phosphatase (46-116) U/L Creatine Kinase (26-308) U/L Troponin I < 0.050 < 0.050 (0.000-0.056) ng/mL B-Natriuretic Peptide 27 (<100) PG/ML Total Protein (6.4-8.2) g/dL Albumin (3.4-5.0) g/dL Globulin (2.6-4.0) g/dL Albumin/Globulin Ratio (0.9-1.6) Amylase (25-115) U/L Lipase (73-393) U/L 07/15/18 Range/Units 06:25 WBC (4.0-11.0) K/uL RBC (4.30-5.90) M/uL Hgb (12.0-16.0) g/dL Hct (36.0-46.0) % MCV (80.0-98.0) fL MCH (27.0-32.0) pg MCHC (31.0-37.0) g/dL RDW Std Deviation (28.0-62.0) fl RDW Coeff of Massimo (11.0-15.0) % Plt Count (150-400) K/uL MPV (7.40-12.00) fL Neut % (Auto) (48.0-80.0) % Lymph % (Auto) (16.0-40.0) % [place] % (Auto) (0.0-15.0) % Eos % (Auto) (0.0-7.0) % Baso % (Auto) (0.0-1.5) % Neut # (Auto) (1.4-5.7) K/uL Lymph # (Auto) (0.6-2.4) K/uL [place] # (Auto) (0.0-0.8) K/uL Eos # (Auto) (0.0-0.7) K/uL Baso # (Auto) (0.0-0.1) K/uL Nucleated RBC % /100WBC Nucleated RBCs # K/uL INR Sodium 139 (136-145) mmol/L Potassium 4.8 (3.5-5.1) mmol/L Chloride 106 (98-107) mmol/L Carbon Dioxide 27.3 (21.0-32.0) mmol/L BUN 15 (7.0-18.0) mg/dL Creatinine 0.9 (0.6-1.0) mg/dL Est Cr Clr Drug Dosing 53.09 mL/min Estimated GFR (MDRD) > 60.0 ml/min Glucose 110 H (74-106) mg/dL Calcium 9.5 (8.5-10.1) mg/dL Total Bilirubin (0.2-1.0) mg/dL AST (15-37) IU/L ALT (14-63) IU/L Alkaline Phosphatase (46-116) U/L Creatine Kinase (26-308) U/L Troponin I (0.000-0.056) ng/mL B-Natriuretic Peptide (<100) PG/ML Total Protein (6.4-8.2) g/dL Albumin (3.4-5.0) g/dL Globulin (2.6-4.0) g/dL Albumin/Globulin Ratio (0.9-1.6) Amylase (25-115) U/L Lipase (73-393) U/L Med Orders - Current: Current Medications Discontinued Medications Amlodipine Besylate (Norvasc) 10 mg PO DAILY [facility] Last Admin: 07/15/18 09:11 Dose: 10 mg Cholecalciferol (Vitamin D3) 1 units PO ASDIRECTED [facility] Enoxaparin Sodium (Lovenox) 40 mg SUBCUT Q24H [facility] Last Admin: 07/14/18 16:04 Dose: 40 mg Fish Oil (Fish Oil) 1 gm PO ASDIRECTED [facility] Melatonin (Melatonin) 3 mg PO BEDTIME [facility] Last Admin: 07/14/18 21:29 Dose: 3 mg Metformin HCl (Glucophage) 850 mg PO ASDIRECTED [facility] Pantoprazole Sodium (Protonix Iv) 40 mg IV NOW ONE Stop: 07/14/18 15:46 Last Admin: 07/14/18 16:04 Dose: 40 mg Candesartan Cilexetil [Atacand] 16 Mg 1 each PO DAILY [facility] Last Admin: 07/15/18 09:12 Dose: Not Given Polyethylene Glycol (Miralax) 17 gm PO BID PRN PRN Reason: Constipation Rosuvastatin Calcium (Crestor) 5 mg PO DAILY [facility] Last Admin: 07/15/18 09:11 Dose: 5 mg
== END 2018-07-15 10:45 | disposition home or self-care (01) ==
LOC: MW.ED 12:54 → MW.MS 14:28
PROVIDERS: ADMIT Internal Medicine; ATTEND Internal Medicine
DX: K21.9 Gastro-esophageal reflux disease without esophagitis (principal); I10 Essential (primary) hypertension; E11.9 Type 2 diabetes mellitus without complications; E78.00 Pure hypercholesterolemia, unspecified; F41.1 Generalized anxiety disorder; Z88.6 Allergy status to analgesic agent; Z79.84 Long term (current) use of oral hypoglycemic drugs; Z79.899 Other long term (current) drug therapy
CPT/HCPCS: 36415; 71045; 80048; 80053; 82150; 82550; 83690; 83880; 84484; 85025; 85610; 93005; 96372; 96374; 99285; A9270; C9113; G0378; J1650

== ENCOUNTER 2018-07-19 01:34 | Emergency (ER) | payer OTHER ==
[2018-07-19] MEDS ORDERED: Acetaminophen 500 MG Tab PO ONE (01:49)
--- NOTE | 2018-07-19 01:50 | EDM.PDOC ---
ED HPI GENERAL MEDICAL PROBLEM - General Chief Complaint: Headache Stated Complaint: MIGRAINE Time Seen by Provider: 07/19/18 01:46 - History of Present Illness INITIAL COMMENTS - FREE TEXT/NARRATIVE: HISTORY AND PHYSICAL: History of present illness: Patient is a 68-year-old female history type 2 diabetes who was seen recently for chest pain and admitted to hospital she's discharged home now presents with a concern of headache no trauma no nausea vomiting or other complaints. Review of systems: As per history of present illness and below otherwise all systems reviewed and negative. Past medical history: As per history of present illness and as reviewed below otherwise noncontributory. Surgical history: As per history of present illness and as reviewed below otherwise noncontributory. Social history: No reported history of drug or alcohol abuse. Family history: As per history of present illness and as reviewed below otherwise noncontributory. Physical exam: HEENT: Atraumatic, normocephalic, pupils reactive, negative for conjunctival pallor or scleral icterus, mucous membranes moist, throat clear, neck supple, nontender, trachea midline. Lungs: Clear to auscultation, breath sounds equal bilaterally, chest nontender. Heart: S1S2, regular, negative for clicks, rubs, or JVD. Abdomen: Soft, nondistended, nontender. Negative for masses or hepatosplenomegaly. Negative for costovertebral tenderness. Pelvis: Stable nontender. Genitourinary: Deferred. Rectal: Deferred. Extremities: Atraumatic, negative for cords or calf pain. Neurovascular unremarkable. Neuro: Awake, alert, oriented. Cranial nerves II through XII unremarkable. Cerebellum unremarkable. Motor and sensory unremarkable throughout. Exam nonfocal. Diagnostics: CT brain Therapeutics: None Impression: #1 cephalgia #2 history type 2 diabetes #3 medical screening exam Definitive disposition and diagnosis as appropriate pending reevaluation and review of above. Right Head Pain Score (Numeric/FACES): 8 - Related Data Allergies Allergy/AdvReac Type Severity Reaction Status Date / Time NSAIDS (Non-Steroidal Allergy Nausea and Verified 07/19/18 01:41 Anti-Inflamma Vomiting Home Meds: Home Meds Candesartan Cilexetil [Atacand] 16 mg PO DAILY 07/14/18 [History] Cholecalciferol (Vitamin D3) [Vitamin D3] 1 cap PO ASDIRECTED 07/14/18 [History] Fish Oil/[place]-3 Fatty Acids [Fish Oil] 1 cap PO ASDIRECTED 07/14/18 [History] Melatonin [Melatin] 3 mg PO BEDTIME 07/14/18 [History] Multivitamin [Daily Multiple Vitamin] 1 tab PO DAILY 07/14/18 [History] Rosuvastatin [Crestor] 5 mg PO DAILY 07/14/18 [History] Vitamin B Complex 1 cap PO ASDIRECTED 07/14/18 [History] amLODIPine Besylate [Amlodipine Besylate] 10 mg PO DAILY 07/14/18 [History] metFORMIN HCl [Metformin HCl] 850 mg PO ASDIRECTED 07/14/18 [History] Escitalopram [Lexapro] 10 mg PO DAILY 30 Days #30 tab 07/15/18 [Rx] Pantoprazole Sodium [Protonix] 40 mg PO DAILY 30 Days #30 tablet. 07/15/18 [Rx ] Escitalopram [Lexapro] 10 mg PO DAILY 07/19/18 [History] Past Medical History Cardiovascular History: Reports: High Cholesterol, Hypertension USED [employer] [facility] History: Reports: Endocrine/Metabolic History: Reports: Diabetes, Type II - Infectious Disease History Infectious Disease History: Reports: Chicken Pox - Past Surgical History Cardiovascular Surgical History: Reports: None Other Female Surgeries/Procedures: Ovarian cyst removal Endocrine Surgical History: Reports: None Social & Family History - Family History Family Medical History: Noncontributory - Caffeine Use Caffeine Use: Reports: None ED ROS GENERAL - Review of Systems Review Of Systems: ROS reveals no pertinent complaints other than HPI. ED EXAM, GENERAL - Physical Exam Exam: See Below (See dictation) Course - Vital Signs Last Recorded V/S: Last Vital Signs Temp 35.7 C 07/19/18 01:43 Pulse 60 07/19/18 01:43 Resp 16 07/19/18 01:43 BP 131/70 07/19/18 01:43 Pulse Ox 98 07/19/18 01:43 - Orders/Labs/Meds Orders: Active Orders 24 hr Category Date Time Status Head wo Cont [CT] Stat Exams 07/19/18 01:46 Ordered Departure - Departure Time of Disposition: 01:48 Disposition: Home, Self-Care 01 Condition: Good Clinical Impression: Cephalgia, Encounter for medical screening examination, History of type 2 diabetes mellitus - Discharge Information Additional Instructions: The following information is given to patients seen in the emergency department who are being discharged to home. This information is to outline your options for follow-up care. We provide all patients seen in our emergency department with a follow-up referral. The need for follow-up, as well as the timing and circumstances, are variable depending upon the specifics of your emergency department visit. If you don't have a primary care physician on staff, we will provide you with a referral. We always advise you to contact your personal physician following an emergency department visit to inform them of the circumstance of the visit and for follow-up with them and/or the need for any referrals to a consulting specialist. The emergency department will also refer you to a specialist when appropriate. This referral assures that you have the opportunity for followup care with a specialist. All of these measure are taken in an effort to provide you with optimal care, which includes your followup. Under all circumstances we always encourage you to contact your private physician who remains a resource for coordinating your care. When calling for followup care, please make the office aware that this follow-up is from your recent emergency room visit. If for any reason you are refused follow-up, please contact the [facility] emergency department at and asked to speak to the emergency department charge nurse. Follow-up primary medical Dr.: Schedule routine appointment return as needed as discussed Tylenol as directed - My Orders Last 24 Hours: My Active Orders 07/19/18 01:46 Head wo Cont [CT] Stat - Assessment/Plan Last 24 Hours: My Active Orders 07/19/18 01:46 Head wo Cont [CT] Stat
--- NOTE | 2018-07-19 02:34 | CT ---
INDICATION: Headache TECHNIQUE: Head CT without contrast. COMPARISON: None FINDINGS: CSF spaces: Within normal limits for age. Brain parenchyma: There are nonspecific low attenuation white matter changes consistent with chronic microvascular disease. No sign of mass, hemorrhage, or midline shift. Skull base and calvarium: The visualized paranasal sinuses and mastoid air cells demonstrate no acute or significant findings. The visualized orbits are grossly unremarkable. No skull fractures. There is intracranial atherosclerosis. IMPRESSION: 1. No acute findings. 2. Nonspecific white matter disease, typical of chronic microvascular disease. Please note that all CT scans at this facility use dose modulation, iterative reconstruction, and/or weight-based dosing when appropriate to reduce radiation dose to as low as reasonably achievable. Dictated by Rachel Ratliff MD @ Jul 19 2018 2:32AM Signed by Dr. Rachel Ratliff @ Jul 19 2018 2:32AM
== END 2018-07-19 02:45 | disposition home or self-care (01) ==
LOC: MW.ED 01:34
DX: R51 Headache (principal); E11.9 Type 2 diabetes mellitus without complications; E78.00 Pure hypercholesterolemia, unspecified; I10 Essential (primary) hypertension; Z88.8 Allergy status to other drugs, medicaments and biological substances; Z79.899 Other long term (current) drug therapy; Z79.84 Long term (current) use of oral hypoglycemic drugs
CPT/HCPCS: 70450; 99284; A9270

== ENCOUNTER 2018-09-14 09:04 | Day surgery (SDC) | payer OTHER, SELFPAY ==
[~2018-09-14 09:04] MED LIST: Lactated Ringers 1,000 ML IV SCH; Sodium Chloride 0.9% 10 ML SDV IV PRN; Sodium Chloride 0.9% 10 ML Syringe FLUSH PRN; Sodium Chloride 0.9% 2.5 ML Syringe FLUSH PRN
--- NOTE | 2018-09-14 10:12 | PCM.PREANE ---
Preanesthetic Assessment - Anesthesia/Transfusion/Family Hx Anesthesia History: Prior Anesthesia Without Reaction (ovarian cystectomy) Family History of Anesthesia Reaction: No Transfusion History: No Prior Transfusion(s) - Review of Systems General: No Symptoms Pulmonary: No Symptoms Cardiovascular: Palpitations (and occ bradycardia) Neurological: No Symptoms Other: Reports: None - Physical Assessment NPO Status Date: 09/13/18 ASA Class: 2 Mental Status: Alert & Oriented x3 Airway Class: Mallampati = 3 Dentition: Reports: Normal Dentition - Allergies Allergies/Adverse Reactions: Allergies Allergy/AdvReac Type Severity Reaction Status Date / Time NSAIDS (Non-Steroidal Allergy Nausea and Verified 07/19/18 01:41 Anti-Inflamma Vomiting - Blood Blood Available: No - Anesthesia Plan Pre-Op Medication Ordered: None - Acknowledgements Anesthesia Type Planned: General Anesthesia Pt an Appropriate Candidate for the Planned Anesthesia: Yes Alternatives and Risks of Anesthesia Discussed w Pt/Guardian: Yes Pt/Guardian Understands and Agrees with Anesthesia Plan: Yes Additional Comments: anes prob list: speaks only tajik (from [facility]). dm2-on metformin, htn. 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: Reports: Endocrine/Metabolic History: Reports: Diabetes, Type II - Infectious Disease History Infectious Disease History: Reports: Chicken Pox - Past Surgical History Cardiovascular Surgical History: Reports: None Other Female Surgeries/Procedures: Ovarian cyst removal Endocrine Surgical History: Reports: None - HOME MEDS Home Medications: Home Meds Candesartan Cilexetil [Atacand] 16 mg PO DAILY 07/14/18 [History] Cholecalciferol (Vitamin D3) [Vitamin D3] 1 cap PO ASDIRECTED 07/14/18 [History] Fish Oil/[place]-3 Fatty Acids [Fish Oil] 1 cap PO ASDIRECTED 07/14/18 [History] Melatonin [Melatin] 3 mg PO BEDTIME 07/14/18 [History] Multivitamin [Daily Multiple Vitamin] 1 tab PO DAILY 07/14/18 [History] Rosuvastatin [Crestor] 5 mg PO DAILY 07/14/18 [History] Vitamin B Complex 1 cap PO ASDIRECTED 07/14/18 [History] amLODIPine Besylate [Amlodipine Besylate] 10 mg PO DAILY 07/14/18 [History] metFORMIN HCl [Metformin HCl] 850 mg PO ASDIRECTED 07/14/18 [History] Escitalopram [Lexapro] 10 mg PO DAILY 30 Days #30 tab 07/15/18 [Rx] Pantoprazole Sodium [Protonix] 40 mg PO DAILY 30 Days #30 tablet. 07/15/18 [Rx ] Escitalopram [Lexapro] 10 mg PO DAILY 07/19/18 [History] - CURRENT (IN HOUSE) MEDS Current Meds: Current Medications Lactated Ringer's (Ringers, Lactated) 1,000 mls @ 125 mls/hr IV ASDIRECTED IVY Sodium Chloride (Saline Flush) 10 ml FLUSH ASDIRECTED PRN PRN Reason: Keep Vein Open Sodium Chloride (Saline Flush) 2.5 ml FLUSH ASDIRECTED PRN PRN Reason: Keep Vein Open Sodium Chloride (Saline Flush) 10 ml FLUSH ASDIRECTED PRN PRN Reason: Keep Vein Open Sodium Chloride (Saline Flush) 2.5 ml FLUSH ASDIRECTED PRN PRN Reason: Keep Vein Open Sodium Chloride (Normal Saline) 10 ml IV ASDIRECTED PRN PRN Reason: IV Use
[2018-09-14] MEDS ORDERED: Lidocaine 2% 100 MG/5 ML Syringe ONE (11:13)
[2018-09-14] MEDS ORDERED: fentaNYL 100 MCG/2 ML SDV ONE (11:13)
[2018-09-14] MEDS ORDERED: Propofol 200 MG/20 ML SDV ONE (11:13)
--- NOTE | 2018-09-14 12:43 | PCM.OPNOTE ---
- General Post-Op/Procedure Note Date of Surgery/Procedure: 09/14/18 Operative Procedure(s): EGD with biopsy Findings: Hiatal hernia with GERD Pre Op Diagnosis: Hiatal hernia Post-Op Diagnosis: Hiatal hernia with GERD Anesthesia Technique: JUANITA Primary Surgeon: Kim Wilkinson Condition: Good
--- NOTE | 2018-09-15 13:40 | OR ---
SURGEON: KIM WILKINSON MD DATE OF PROCEDURE: 09/14/2018 PREOPERATIVE DIAGNOSES: Hiatal hernia, reflux. POSTOPERATIVE DIAGNOSES: Hiatal hernia, reflux. PROCEDURE PERFORMED: Diagnostic esophagogastroduodenoscopy. PRIMARY SURGEON: Kim Wilkinson MD. ANESTHESIA: MAC. INSTRUMENT USED: Olympus endoscope. EXTENT OF EXAM: To the second portion of the duodenum. PREPARATION: Good. LIMITATIONS: None. INDICATIONS: The patient is a 68-year-old female who was recently seen in the ER with severe retrosternal chest pain. CT scan showed a small hiatal hernia and some questionable thickening of the gastric mucosa. The patient was started on a PPI which has helped her symptoms. I explained the need for diagnostic EGD. I explained the procedure; expected perioperative course; and risks including bleeding, infection, or damage to surrounding structures including perforation. The patient verbalized understanding and wishes to proceed. PROCEDURE IN DETAIL: The patient was brought to the endoscopy suite and placed in a beach chair position. A time-out was completed verifying the patient's name, age, date of , allergies, and procedure to be performed. A bite block was placed in the patient's mouth. Monitored anesthesia care was induced and continuous oxygen was provided via nasal cannula throughout the procedure. After adequate sedation was achieved, a well-lubricated endoscope was placed in the patient's mouth and advanced under direct visualization to the second portion of duodenum. This appeared normal and a photograph was taken. The scope was then straightened out and fully withdrawn while examining the color, texture, anatomy, and integrity mucosa of the upper GI tract. The duodenum appeared normal. The scope was brought into the stomach and a photograph was taken of the pylorus and the GE junction. The patient clearly had a hiatal hernia. The gastric mucosa appeared normal with no evidence of gross inflammation or ulceration. Biopsies were taken of the gastric antrum, body, and fundus, and sent for histologic review and H. pylori testing. The scope was brought into the distal esophagus and a photograph was taken of the hiatal hernia sac as well as the GE junction. There was no evidence of any distal esophagitis, but a biopsy was taken of the distal esophageal mucosa. The remainder of the esophagus was free of pathology. The scope was then removed and the procedure terminated. The patient tolerated the procedure well and was taken to PACU in stable condition. ENDOSCOPIC DIAGNOSIS: Hiatal hernia with gastroesophageal reflux disease. RECOMMENDATIONS: Follow up in clinic in 2 weeks. AURELIA FRANCOIS /[id number]
== END 2018-09-14 13:20 | disposition home or self-care (01) ==
LOC: MW.SDS 09:04
PROVIDERS: ATTEND Surgery
DX: K21.0 Gastro-esophageal reflux disease with esophagitis (principal); K44.9 Diaphragmatic hernia without obstruction or gangrene; K29.50 Unspecified chronic gastritis without bleeding; K31.7 Polyp of stomach and duodenum; I10 Essential (primary) hypertension; E11.9 Type 2 diabetes mellitus without complications; E78.00 Pure hypercholesterolemia, unspecified; F32.9 Major depressive disorder, single episode, unspecified; G89.29 Other chronic pain; M54.5 Low back pain; Z88.6 Allergy status to analgesic agent; Z79.84 Long term (current) use of oral hypoglycemic drugs; Z79.899 Other long term (current) drug therapy
CPT/HCPCS: 43239; J2704; J3010; J7120; 00731; 88305; 88312; J2001

== ENCOUNTER 2018-11-17 09:06 | Day surgery (SDC) | payer OTHER, SELFPAY ==
[~2018-11-17 09:06] MED LIST changes: +Midazolam 1 MG/ML 2 ML SDV ONE; +Ondansetron 4 MG/2 ML SDV ONE; +Propofol 200 MG/20 ML SDV ONE; +fentaNYL 100 MCG/2 ML SDV ONE
--- NOTE | 2018-11-17 10:09 | PCM.PREANE ---
Preanesthetic Assessment - Anesthesia/Transfusion/Family Hx Anesthesia History: Prior Anesthesia Without Reaction Other Type of Anesthesia Reaction Comment: H beating fast, burning, & having palpitations. Family History of Anesthesia Reaction: No Transfusion History: No Prior Transfusion(s) Intubation History: Unknown - Review of Systems General: No Symptoms Pulmonary: No Symptoms Cardiovascular: No Symptoms Gastrointestinal: Abdominal Pain Neurological: No Symptoms Other: Reports: None - Physical Assessment NPO Status Date: 11/17/18 NPO Status Time: 07:00 Vital Signs: Last Vital Signs Temp 37.3 C 11/17/18 09:32 Pulse 76 11/17/18 09:32 Resp 18 11/17/18 09:32 BP 141/85 H 11/17/18 09:32 Pulse Ox 98 11/17/18 09:32 Height: 5 ft 3 in Weight: 79.379 kg ASA Class: 3 Mental Status: Alert & Oriented x3 Airway Class: Mallampati = 2 Dentition: Reports: Normal Dentition Thyro-Mental Finger Breadths: 3 Mouth Opening Finger Breadths: 3 ROM/Head Extension: Full Lungs: Clear to Auscultation, Normal Respiratory Effort Cardiovascular: Regular Rate, Regular Rhythm - Allergies Allergies/Adverse Reactions: Allergies Allergy/AdvReac Type Severity Reaction Status Date / Time NSAIDS (Non-Steroidal Allergy Nausea and Verified 11/12/18 15:23 Anti-Inflamma Vomiting - Blood Blood Available: No - Anesthesia Plan Pre-Op Medication Ordered: None - Acknowledgements Anesthesia Type Planned: MAC Pt an Appropriate Candidate for the Planned Anesthesia: Yes Alternatives and Risks of Anesthesia Discussed w Pt/Guardian: Yes Pt/Guardian Understands and Agrees with Anesthesia Plan: Yes PreAnesthesia Questionnaire HEENT History: Reports: Other (See Below) Other HEENT History: wears glasses Cardiovascular History: Reports: High Cholesterol, Hypertension Gastrointestinal History: Reports: GERD, Hepatitis, Hiatal Hernia Other Gastrointestinal History: hx of Hepatitis C [employer] History: Reports: Musculoskeletal History: Reports: Arthritis, Back Pain, Chronic, Fracture Other Musculoskeletal History: hx of fx ankle, some arthritis in knees Psychiatric History: Reports: Anxiety Endocrine/Metabolic History: Reports: Diabetes, Type II, Obesity/BMI 30+ - Infectious Disease History Infectious Disease History: Reports: Chicken Pox, Hepatitis C - Past Surgical History Cardiovascular Surgical History: Reports: None GI Surgical History: Reports: EGD, Hernia, Abdominal, Other (See Below) Other GI Surgeries/Procedures: recent Ventral and Unbilical hernia repairs Female Surgical History: Reports: Cystectomy Other Female Surgeries/Procedures: Ovarian cyst removal Endocrine Surgical History: Reports: None - SUBSTANCE USE Smoking Status *Q: Never Smoker Recreational Drug Use History: No - HOME MEDS Home Medications: Home Meds Candesartan Cilexetil [Atacand] 16 mg PO BEDTIME 07/14/18 [History] amLODIPine Besylate [Amlodipine Besylate] 10 mg PO QAM 07/14/18 [History] Pantoprazole Sodium [Protonix] 40 mg PO DAILY 30 Days #30 tablet. 07/15/18 [Rx ] Escitalopram Oxalate 10 mg PO DAILY 10/04/18 [History] metFORMIN [Glucophage XR] 500 mg PO BID 11/12/18 [History] - CURRENT (IN HOUSE) MEDS Current Meds: Current Medications Lactated Ringer's (Ringers, Lactated) 1,000 mls @ 125 mls/hr IV ASDIRECTED IVY Last Admin: 11/17/18 09:35 Dose: 125 mls/hr Sodium Chloride (Saline Flush) 10 ml FLUSH ASDIRECTED PRN PRN Reason: Keep Vein Open Sodium Chloride (Saline Flush) 2.5 ml FLUSH ASDIRECTED PRN PRN Reason: Keep Vein Open Sodium Chloride (Saline Flush) 10 ml FLUSH ASDIRECTED PRN PRN Reason: Keep Vein Open Sodium Chloride (Saline Flush) 2.5 ml FLUSH ASDIRECTED PRN PRN Reason: Keep Vein Open Sodium Chloride (Normal Saline) 10 ml IV ASDIRECTED PRN PRN Reason: IV Use Discontinued Medications Fentanyl (Sublimaze) Confirm Administered Dose 100 mcg .ROUTE .STK-MED ONE Stop: 11/17/18 08:49 Midazolam HCl (Versed 1 Mg/Ml) Confirm Administered Dose 2 mg .ROUTE .STK-MED ONE Stop: 11/17/18 08:49 Ondansetron HCl (Zofran) Confirm Administered Dose 4 mg .ROUTE .STK-MED ONE Stop: 11/17/18 08:49 Propofol (Diprivan 20 Ml) Confirm Administered Dose 200 mg .ROUTE .STK-MED ONE Stop: 11/17/18 08:49
--- NOTE | 2018-11-17 11:22 | PCM.POSTAN ---
POST ANESTHESIA ASSESSMENT - MENTAL STATUS Mental Status: Alert, Oriented - VITAL SIGNS Vital Signs: Last Vital Signs Temp 36.6 C 11/17/18 11:14 Pulse 65 11/17/18 11:14 Resp 16 11/17/18 11:14 BP 139/71 11/17/18 11:14 Pulse Ox 96 11/17/18 11:14 - RESPIRATORY Respiratory Status: Respiratory Rate WNL, Airway Patent, O2 Saturation Stable - CARDIOVASCULAR CV Status: Pulse Rate WNL, Blood Pressure Stable - GASTROINTESTINAL GI Status: No Symptoms - PAIN Pain Score: 0 - POST OP HYDRATION Hydration Status: Adequate & Stable - OBSERVATIONS Free Text/Narrative:: no anesthesia problems
--- NOTE | 2018-11-17 11:41 | PCM48HPAN ---
Post Anesthesia Note - EVALUATION WITHIN 48HRS OF ANESTHETIC Vital Signs in Normal Range: Yes Patient Participated in Evaluation: Yes Respiratory Function Stable: Yes Airway Patent: Yes Cardiovascular Function Stable: Yes Hydration Status Stable: Yes Pain Control Satisfactory: Yes Nausea and Vomiting Control Satisfactory: Yes Mental Status Recovered: Yes Vital Signs: Last Vital Signs Temp 36.6 C 11/17/18 11:14 Pulse 65 11/17/18 11:14 Resp 16 11/17/18 11:14 BP 139/71 11/17/18 11:14 Pulse Ox 96 11/17/18 11:14 - COMMENTS/OBSERVATIONS Free Text/Narrative:: no anesthesia problems
--- NOTE | 2018-11-17 15:03 | PCM.OPNOTE ---
- General Post-Op/Procedure Note Date of Surgery/Procedure: 11/17/18 Operative Procedure(s): Diagnostic colonoscopy Findings: Diverticulosis Pre Op Diagnosis: LLQ pain Post-Op Diagnosis: Diverticulosis Anesthesia Technique: MAC Primary Surgeon: Kim Wilkinson Condition: Good Free Text/Narrative:: Intake & Output 11/17/18 11/17/18 11/17/18 06:59 14:59 22:59 Intake Total 950 Balance 950
--- NOTE | 2018-11-19 08:25 | OR ---
DATE OF PROCEDURE: 11/17/2018 PREOPERATIVE DIAGNOSIS: Left lower quadrant pain. POSTOPERATIVE DIAGNOSIS: Diverticulosis. PROCEDURE PERFORMED: Diagnostic colonoscopy. PRIMARY SURGEON: Kim Wilkinson MD. ANESTHESIA: MAC. INSTRUMENT USED: Olympus colonoscope. EXTENT OF EXAM: To the cecum. PREPARATION: Good. LIMITATIONS: None. INDICATION FOR EXAMINATION: The patient is a 68-year-old female, who complains of chronic intermittent crampy left lower quadrant pain. She has never had a colonoscopy before. I explained the need for one. I explained the procedure, expected perioperative course, and risks including bleeding, infection, or damage to surrounding structures, including perforation. She verbalized understanding and wishes to proceed. PROCEDURE IN DETAIL: The patient was brought to the endoscopy suite and placed in the left lateral decubitus position. A time-out was completed verifying the patient's name, age, date of , allergies, and procedure to be performed. Monitored anesthesia care was induced and continuous oxygen was provided via nasal cannula throughout the procedure. After adequate sedation was achieved, a digital rectal exam was performed. This exam was within normal limits. A well-lubricated colonoscope was inserted in the rectum and advanced under direct visualization to the level of the cecum. The cecum was identified by both visual and anatomic landmarks. Photograph was taken of the cecal cap. However, I was unable to retroflex the scope within the cecum, due to looping of the scope more proximally. The scope was then straightened out and fully withdrawn, while examining the color, texture, anatomy, and integrity of the mucosa from the cecum to the anal canal. The patient was found to have scattered diverticula throughout the sigmoid colon. It was otherwise normal. The scope was brought into the rectum and retroflexed to allow visualization of the anal canal opening. This appeared normal, and photograph was taken. The scope was straightened out and fully withdrawn. The cecum to anus time was 6 minutes. The patient tolerated the procedure well and was transferred to the PACU in stable condition. ENDOSCOPIC DIAGNOSIS: Diverticulosis. RECOMMENDATIONS: Follow up in clinic in 2 weeks. AURELIA FRANCOIS /[id number]
== END 2018-11-17 11:41 | disposition home or self-care (01) ==
LOC: MW.SDS 09:06
PROVIDERS: ATTEND Surgery
DX: K57.30 Diverticulosis of large intestine without perforation or abscess without bleeding (principal); E78.00 Pure hypercholesterolemia, unspecified; K21.9 Gastro-esophageal reflux disease without esophagitis; I10 Essential (primary) hypertension; E11.9 Type 2 diabetes mellitus without complications; M19.90 Unspecified osteoarthritis, unspecified site; E66.9 Obesity, unspecified; Z88.6 Allergy status to analgesic agent; Z79.899 Other long term (current) drug therapy; Z79.84 Long term (current) use of oral hypoglycemic drugs; Z68.31 Body mass index [BMI] 31.0-31.9, adult
CPT/HCPCS: 45378; J2250; J2405; J2704; J3010; J7120